=== PATIENT | male | born 1960 | race Caucasian/White ===

== ENCOUNTER 2017-11-09 14:26 | Emergency (ER) | payer MEDICARE, BC ==
[~2017-11-09] VITALS: Ht 190.5 cm; Wt 91.0 kg
[~2017-11-09 14:26] MED LIST: HYDR-569 PO; IBUP-1985 PO; ONDA8TAB9 PO
[2017-11-09] MEDS ORDERED: HYDROcodone/acetaminophen 5mg/325mg tablet PO ONE (16:05)
[2017-11-09] MEDS ORDERED: HYDR-3965 PO (16:08)
[2017-11-09 17:08] VITALS: BP 139/97
== END 2017-11-09 17:09 | disposition home or self-care (01) ==
LOC: ER 14:27
DX: S22.41XA Multiple fractures of ribs, right side, initial encounter for closed fracture (principal); S62.112A Displaced fracture of triquetrum [cuneiform] bone, left wrist, initial encounter for closed fracture; S00.81XA Abrasion of other part of head, initial encounter; I10 Essential (primary) hypertension; I25.2 Old myocardial infarction; J45.909 Unspecified asthma, uncomplicated; E11.9 Type 2 diabetes mellitus without complications; G89.29 Other chronic pain; Z87.442 Personal history of urinary calculi; Z98.890 Other specified postprocedural states; Z88.8 Allergy status to other drugs, medicaments and biological substances; W13.2XXA Fall from, out of or through roof, initial encounter; Y93.89 Activity, other specified; Y92.89 Other specified places as the place of occurrence of the external cause; Y99.9 Unspecified external cause status
CPT/HCPCS: 29125; 70450; 71250; 72125; 73110; 73130; 99284; A4565; A6449; L0172

== ENCOUNTER 2018-01-13 23:19 | Emergency (ER) | payer MEDICARE, BC ==
[~2018-01-13] VITALS: Ht 188 cm; Wt 109.0 kg
[~2018-01-13 23:19] MED LIST changes: +HYDR-4383 PO; -HYDR-569 PO
[2018-01-13] MEDS ORDERED: predniSONE 20 mg tablet PO ONE (23:35)
[2018-01-13] MEDS ORDERED: ipratropium/albuterol 3ml nebule NEB ONE (23:35)
[2018-01-13] MEDS ORDERED: PRED20TA PO (23:49)
[2018-01-13] MEDS ORDERED: GUAI473S11 PO (23:49)
[2018-01-13] MEDS ORDERED: AMOX-419 PO (23:49)
[2018-01-14 00:09] VITALS: BP 164/123
== END 2018-01-14 00:12 | disposition home or self-care (01) ==
LOC: ER 23:20
DX: S62.112D Displaced fracture of triquetrum [cuneiform] bone, left wrist, subsequent encounter for fracture with routine healing (principal); J20.9 Acute bronchitis, unspecified; J45.901 Unspecified asthma with (acute) exacerbation; I10 Essential (primary) hypertension; I25.2 Old myocardial infarction; E11.9 Type 2 diabetes mellitus without complications; G89.29 Other chronic pain; Z88.8 Allergy status to other drugs, medicaments and biological substances; Z79.899 Other long term (current) drug therapy; W13.2XXA Fall from, out of or through roof, initial encounter
CPT/HCPCS: 71046; 73110; 82948; 94640; 94760; 99284; J7512

== ENCOUNTER 2018-01-28 09:16 | Outpatient (CLI) | payer MEDICARE, BC ==
[2018-01-28 09:13] VITALS: BP 130/85
== END 2018-01-28 09:49 | disposition home or self-care (01) ==
LOC: ORTHO 09:16
PROVIDERS: ATTEND Nurse Practitioner Family
DX: S62.115A Nondisplaced fracture of triquetrum [cuneiform] bone, left wrist, initial encounter for closed fracture (principal); I10 Essential (primary) hypertension; J45.909 Unspecified asthma, uncomplicated; E11.9 Type 2 diabetes mellitus without complications; Z79.899 Other long term (current) drug therapy; Z88.2 Allergy status to sulfonamides; W13.2XXA Fall from, out of or through roof, initial encounter; Y93.89 Activity, other specified; Y92.89 Other specified places as the place of occurrence of the external cause; Y99.8 Other external cause status
CPT/HCPCS: 99213; A4590

== ENCOUNTER 2018-02-17 08:57 | Outpatient (CLI) | payer MEDICARE, BC ==
[2018-02-17 09:04] VITALS: BP 128/73
== END 2018-02-17 09:32 | disposition home or self-care (01) ==
LOC: ORTHO 08:57
PROVIDERS: ATTEND Nurse Practitioner Family
DX: S62.115 Nondisplaced fracture of triquetrum [cuneiform] bone, left wrist (principal); I10 Essential (primary) hypertension; I25.2 Old myocardial infarction; E11.9 Type 2 diabetes mellitus without complications; J45.909 Unspecified asthma, uncomplicated; G89.29 Other chronic pain; M54.9 Dorsalgia, unspecified; F41.9 Anxiety disorder, unspecified; Z86.79 Personal history of other diseases of the circulatory system; Z79.4 Long term (current) use of insulin; Z88.2 Allergy status to sulfonamides; W13.2XXD Fall from, out of or through roof, subsequent encounter
CPT/HCPCS: 73110; 99213

== ENCOUNTER 2018-03-12 09:01 | Outpatient (CLI) | payer MEDICARE, BC ==
[2018-03-12 09:02] VITALS: BP 150/88
== END 2018-03-12 10:07 | disposition home or self-care (01) ==
LOC: ORTHO 09:01
PROVIDERS: ATTEND Nurse Practitioner Family
DX: S62.115 Nondisplaced fracture of triquetrum [cuneiform] bone, left wrist (principal); I10 Essential (primary) hypertension; I25.2 Old myocardial infarction; E11.9 Type 2 diabetes mellitus without complications; J45.909 Unspecified asthma, uncomplicated; G89.29 Other chronic pain; Z88.8 Allergy status to other drugs, medicaments and biological substances; Z79.4 Long term (current) use of insulin; W19.XXXD Unspecified fall, subsequent encounter
CPT/HCPCS: 73110; 99213

== ENCOUNTER 2019-08-17 17:24 | Observation (INO) | payer MEDICARE, BC ==
[~2019-08-17] VITALS: Ht 190.5 cm; Wt 80.0 kg
[2019-08-17] MEDS ORDERED: ketorolac trometh inj. 60 MG/2 ML VIAL IM ONE (17:55)
--- NOTE | 2019-08-17 19:30 | NUR ---
Pt started on non-rebreather. He will placed on this for 6 hrs. IV started.
[2019-08-17] MEDS ORDERED: DULA1.5P SUBCUT (20:34)
[2019-08-17] MEDS ORDERED: METF-950 PO (20:34)
[2019-08-17] MEDS ORDERED: ATOR10TA70 PO (20:34)
[2019-08-17] MEDS ORDERED: TRAZ300T2 PO (20:34)
[2019-08-17] MEDS ORDERED: LISI-600 PO (20:35)
[2019-08-17] MEDS ORDERED: ondansetron/PF 4mg/2ml inj IV PRN (20:50)
[2019-08-17] MEDS ORDERED: potassium CL 10mEq/100ml bag 100 ML IV PRN ×2 (20:50)
[2019-08-17] MEDS ORDERED: bisacodyl 10mg suppository rectal RC PRN (20:50)
[2019-08-17] MEDS ORDERED: HYDROcodone/acetaminophen 5mg/325mg tablet PO PRN (20:50)
[2019-08-17] MEDS ORDERED: magnesium hydroxide 30ml (MOM) UD suspension PO PRN (20:50)
[2019-08-17] MEDS ORDERED: magnesium 2GM in 50ml NS 50 ML IV PRN (20:50)
[2019-08-17] MEDS ORDERED: magnesium 4gm in 100ml NS 100 ML IV PRN (20:50)
[2019-08-17] MEDS ORDERED: potassium Cl 20 mEq SR tablet PO PRN ×2 (20:50)
[2019-08-17] MEDS ORDERED: magnesium Cl slow-release 64mg tablet PO PRN (20:50)
[2019-08-17] MEDS ORDERED: mag hydrox/Alum hydrox/simeth 30ml oral suspension PO PRN (20:50)
[2019-08-17] MEDS ORDERED: acetaminophen 325mg tablet PO PRN (20:50)
[2019-08-17] MEDS ORDERED: dextrose 50%-water 50ml dispensing syringe IV PRN ×2 (21:25)
[2019-08-17] MEDS ORDERED: insulin Lispro (HumaLOG) vial - multi-dose SQ SCH (21:25)
[2019-08-17] MEDS ORDERED: dextrose ORAL solution 15 GM/59 ML bottle PO PRN ×2 (21:25)
[2019-08-17] MEDS ORDERED: glucagon, human recombinant 1mg kit SUBCUT PRN (21:25)
[2019-08-17] MEDS ORDERED: MESSAGE TO PHARMACY PO ONE (21:25)
[2019-08-17] MEDS: morphine 2 MG/ML inj. syringe IV PRN (22:01)
[2019-08-17 22:22] VITALS: BP 154/79
[2019-08-17] MEDS ORDERED: diphenhydrAMINE 50 mg/ml inj IV ONE (22:40)
--- NOTE | 2019-08-17 22:48 | NUR ---
Patient in room [facility]. I have received report from LETY Lemus and had the opportunity to ask questions and assume patient care. Addendum: 08/17/19 at 2250 by Dolores Castellanos RN Amended: Links added.
[2019-08-18] MEDS: morphine 2 MG/ML inj. syringe IV PRN ×2 (02:46→07:09)
[2019-08-18 05:57] LABS: BASOPHILS % (AUTO) 0.5 % (0-1); EOSINOPHILS # (AUTO) 0.2 X10'3 (0-0.9); EOSINOPHILS % (AUTO) 2.3 % (0-6); HEMATOCRIT 37.1 % (42.0-52.0); HEMOGLOBIN 12.9 g/dl (14.0-17.9); LYMPHOCYTES # (AUTO) 1.9 X10'3 (1.1-4.8); MEAN CORPUSCULAR HEMOGLOBIN 28.7 PG (27.0-31.0); MEAN CORPUSCULAR HGB CONC 34.7 g/dL (33.0-36.5); MEAN CORPUSCULAR VOLUME 82.8 FL (78-98); MEAN PLATELET VOLUME 8.5 FL (7.4-10.4); MONOCYTES # (AUTO) 0.5 X10'3 (0-0.9); MONOCYTES % (AUTO) 7.9 % (2-12); NEUTROPHILS # (AUTO) 3.8 X10'3 (1.8-7.7); NEUTROPHILS % (AUTO) 59.3 % (42-75); PLATELET COUNT 160 X10'3 (140-440); RED BLOOD COUNT 4.48 X10'6 (4.70-6.10); RED CELL DISTRIBUTION WIDTH 13.5 % (11.5-14.5); WHITE BLOOD COUNT 6.5 X10'3 (4.5-11.0)
[2019-08-18 06:04] LABS: ALANINE AMINOTRANSFERASE 23 U/L (12-78); ALBUMIN 3.2 G/DL (3.4-5.0); ALKALINE PHOSPHATASE 66 IU/L (46-116); ANION GAP 7 (8-16); ASPARTATE AMINO TRANSFERASE 17 U/L (10-37); BILIRUBIN,TOTAL 0.4 MG/DL (0.1-1.0); BLOOD UREA NITROGEN 13 MG/DL (7-18); BUN/CREATININE RATIO 15.9 (5.4-32.0); CALCIUM 8.5 MG/DL (8.5-10.1); CHLORIDE 106 MMOL/L (99-107); CREATININE 0.82 MG/DL (0.60-1.10); GLUCOSE 97 MG/DL (70-104); MAGNESIUM 1.9 MG/DL (1.5-2.4); POTASSIUM 3.7 MMOL/L (3.5-5.1); SODIUM 141 MMOL/L (135-145); TOTAL CARBON DIOXIDE 28.1 MMOL/L (24-32); TOTAL PROTEIN 6.4 G/DL (6.4-8.2); eGFR > 90 ML/MIN
--- NOTE | 2019-08-18 06:35 | NUR ---
Problems reprioritized. Patient report given, questions answered & plan of care reviewed with LETY Álvarez. Addendum: 08/18/19 at 0635 by Dolores Castellanos RN Amended: Links added.
[2019-08-18 08:00] VITALS: BP_SYST 115; BP_SYST 146; BP_DIAS 75; BP_DIAS 86
[2019-08-18] MEDS ORDERED: lisinopril 10 MG tablet PO SCH (08:00)
[2019-08-18] MEDS ORDERED: K and/or MAG REPLACEMENT MC SCH (08:00)
[2019-08-18] MEDS ORDERED: docusate sod 100mg capsule PO SCH (08:00)
[2019-08-18] MEDS ORDERED: HYDROcodone/acetaminophen 10/325mg tab PO PRN (10:25)
[2019-08-18 12:00] VITALS: BP 115/75
[2019-08-18] MEDS ORDERED: HYDR-4383 PO (12:16)
--- NOTE | 2019-08-18 13:22 | NUR ---
DM consult: Pt with A1c 7.6% seen at bedside. Pt denies questions about DM management at this time. Pt states A1c previously 9.5% a couple months ago however believes decreased A1c is r/t changes in PO intake secondary to diverticulitis. Pt states he is awaiting an appointment with a senior report developer. Pt provided with written and verbal diverticulitis nutrition therapy education with written fiber content in food and DM education. Pt currently endorses a good appetite and states he is getting full from meals. Pt denies food allergies and reports some difficulty chewing d/t not having his dentures with him, although pt denies texture modification at this time. Pt denies constipation/diarrhea. RD contact information provided and pt encouraged to reach out if needed. Will remain available. Addendum: 08/18/19 at [address] Amended: Links added.
[2019-08-18] MEDS ORDERED: traZODone 150mg tablet PO SCH (21:00)
[2019-08-18] MEDS ORDERED: atorvastatin 10mg tablet PO SCH (21:00)
[2019-08-18] MEDS ORDERED: insulin glargine (Lantus) pen - multi-dose SQ SCH (21:00)
== END 2019-08-18 14:25 | disposition home or self-care (01) ==
LOC: ER 17:26 → SUR 3N 20:49 → CMPBEDREQ 08-18 00:10
PROVIDERS: ADMIT Family Medicine; ATTEND Internal Medicine
DX: S22.31XA Fracture of one rib, right side, initial encounter for closed fracture (principal); S27.1XXA Traumatic hemothorax, initial encounter; M54.2 Cervicalgia; J93.9 Pneumothorax, unspecified; S27.329A Contusion of lung, unspecified, initial encounter; W11.XXXA Fall on and from ladder, initial encounter; Y93.89 Activity, other specified; Y92.009 Unspecified place in unspecified non-institutional (private) residence as the place of occurrence of the external cause; E11.9 Type 2 diabetes mellitus without complications; E78.5 Hyperlipidemia, unspecified; I10 Essential (primary) hypertension; I25.2 Old myocardial infarction; J45.909 Unspecified asthma, uncomplicated; G89.29 Other chronic pain; M54.9 Dorsalgia, unspecified; F41.9 Anxiety disorder, unspecified; Z87.442 Personal history of urinary calculi; Z79.84 Long term (current) use of oral hypoglycemic drugs; Z79.899 Other long term (current) drug therapy; Z88.8 Allergy status to other drugs, medicaments and biological substances
CPT/HCPCS: 36415; 70450; 71045; 71250; 72125; 80053; 82948; 83036; 83735; 85025; 87081; 96372; 96374; 96375; 96376; 99285; G0378; J1200; J1885; J2270; J1815

== ENCOUNTER 2019-08-25 18:40 | Emergency (ER) | payer MEDICARE, BC ==
[~2019-08-25] VITALS: Ht 190.5 cm; Wt 97.0 kg
[~2019-08-25 18:40] MED LIST changes: +ATOR10TA70 PO; +DULA1.5P SUBCUT; -IBUP-1985 PO; +LISI-600 PO; +METF-950 PO; -ONDA8TAB9 PO; +TRAZ300T2 PO
[2019-08-25] MEDS ORDERED: albuterol 2.5 MG/3 ML nebule NEB ONE (20:05)
--- NOTE | 2019-08-25 20:13 | NUR ---
RT paged for breathing tx
[2019-08-25 21:07] LABS: BASOPHILS % (AUTO) 0.5 % (0-1); EOSINOPHILS # (AUTO) 0.1 X10'3 (0-0.9); EOSINOPHILS % (AUTO) 1.1 % (0-6); HEMATOCRIT 39.5 % (42.0-52.0); HEMOGLOBIN 13.5 g/dl (14.0-17.9); LYMPHOCYTES % (AUTO) 11.9 % (21-51); MEAN CORPUSCULAR HEMOGLOBIN 28.2 PG (27.0-31.0); MEAN CORPUSCULAR HGB CONC 34.2 g/dL (33.0-36.5); MEAN CORPUSCULAR VOLUME 82.4 FL (78-98); MEAN PLATELET VOLUME 8.5 FL (7.4-10.4); MONOCYTES # (AUTO) 0.5 X10'3 (0-0.9); MONOCYTES % (AUTO) 5.4 % (2-12); NEUTROPHILS # (AUTO) 6.9 X10'3 (1.8-7.7); NEUTROPHILS % (AUTO) 81.1 % (42-75); PLATELET COUNT 250 X10'3 (140-440); RED BLOOD COUNT 4.79 X10'6 (4.70-6.10); RED CELL DISTRIBUTION WIDTH 13.7 % (11.5-14.5); WHITE BLOOD COUNT 8.6 X10'3 (4.5-11.0)
[2019-08-25 21:26] LABS: ALANINE AMINOTRANSFERASE 23 U/L (12-78); ALBUMIN 3.1 G/DL (3.4-5.0); ALBUMIN/GLOBULIN RATIO 0.7 (1.1-1.5); ALKALINE PHOSPHATASE 78 IU/L (46-116); ANION GAP 9 (8-16); ASPARTATE AMINO TRANSFERASE 14 U/L (10-37); BILIRUBIN,TOTAL 0.4 MG/DL (0.1-1.0); BLOOD UREA NITROGEN 12 MG/DL (7-18); BUN/CREATININE RATIO 11.3 (5.4-32.0); CALCIUM 8.9 MG/DL (8.5-10.1); CHLORIDE 102 MMOL/L (99-107); CREATININE 1.06 MG/DL (0.60-1.10); GLUCOSE 191 MG/DL (70-104); POTASSIUM 3.7 MMOL/L (3.5-5.1); SODIUM 141 MMOL/L (135-145); TOTAL CARBON DIOXIDE 29.7 MMOL/L (24-32); TOTAL PROTEIN 7.3 G/DL (6.4-8.2); eGFR 72 ML/MIN
[2019-08-25] MEDS ORDERED: acetaminophen w/codeine (60MG) #4 tablet PO STA (21:41)
[2019-08-25] MEDS ORDERED: ACET1TAB12 PO (21:48)
[2019-08-25] MEDS ORDERED: AZIT250T83 PO (21:48)
[2019-08-25] MEDS ORDERED: acetaminophen w/codeine (30MG) #3 tablet PO ONE (22:15)
[2019-08-25 22:29] VITALS: BP 152/105
== END 2019-08-25 22:30 | disposition home or self-care (01) ==
LOC: ER 18:40
DX: R07.81 Pleurodynia (principal); R05 Cough; J93.9 Pneumothorax, unspecified; I10 Essential (primary) hypertension; I25.2 Old myocardial infarction; J45.909 Unspecified asthma, uncomplicated; E11.9 Type 2 diabetes mellitus without complications; G89.29 Other chronic pain; F41.9 Anxiety disorder, unspecified; Z98.890 Other specified postprocedural states; Z88.8 Allergy status to other drugs, medicaments and biological substances; Z79.2 Long term (current) use of antibiotics
CPT/HCPCS: 36415; 71045; 80053; 83605; 85025; 94640; 94760; 99284

== ENCOUNTER 2020-03-10 18:43 | Emergency (ER) | payer MEDICARE, BC ==
[~2020-03-10] VITALS: Ht 188 cm; Wt 97.7 kg
[~2020-03-10 18:43] MED LIST changes: +ACET1TAB12 PO
--- NOTE | 2020-03-10 20:03 | NUR ---
Pt returned from X-ray ambulatory with the Schedule Analyst.
[2020-03-10] MEDS ORDERED: LIDOcaine Viscous 15ml cup MM STA (20:29)
[2020-03-10 22:36] VITALS: BP 184/100
== END 2020-03-10 22:41 | disposition home or self-care (01) ==
LOC: ER 18:44
DX: T17.298A Other foreign object in pharynx causing other injury, initial encounter (principal); I10 Essential (primary) hypertension; I25.2 Old myocardial infarction; J45.909 Unspecified asthma, uncomplicated; E11.9 Type 2 diabetes mellitus without complications; G89.29 Other chronic pain; F41.9 Anxiety disorder, unspecified; Z87.442 Personal history of urinary calculi; Z98.890 Other specified postprocedural states; Z88.8 Allergy status to other drugs, medicaments and biological substances; Z79.899 Other long term (current) drug therapy; X58.XXXA Exposure to other specified factors, initial encounter; Y93.89 Activity, other specified; Y92.89 Other specified places as the place of occurrence of the external cause; Y99.8 Other external cause status
CPT/HCPCS: 70360; 99285